=== PATIENT | female | born 1955 | race Caucasian/White ===

== ENCOUNTER → 2018-03-12 | Outpatient (CLI) | payer OTHER, BC ==
[~2018-03-12] MED LIST: ADDERALL10 MG PO; ALPRAZOLAM0.5 MG PO; CELEBREX200 MG PO; COLACE100 MG PO; COMPAZINE10 MG PO; CONCERTA27 MG PO; CYCLOBENZAPRINE5 MG PO; DIMENHYDRINATE50 MG PO; FEMARA2.5 MG PO; GABAPENTIN300 MG PO; INDERAL20 MG PO; IRON18 MG PO; IRON325 M1 PO; KLOR-CON20 MEQ PO; LIDOCAINE700 MG TP; LISINOPRIL10 MG PO; LISINOPRIL20 MG PO; MARINOL10 MG PO; MAXALT10 MG PO; MEGACE 40 MG40 MG/ML PO; MIRALAX17 GM PO; MORPHINE SULFAT30 M2 PO; MORPHINE SULFAT90 MG PO; MOVANTIK12.5 MG PO; MS CONTIN,ORAMO15 M1 PO; MS CONTIN,ORAMO30 MG PO; MS CONTIN,ORAMO60 MG PO; NARCAN4 MG NS; NEURONTIN300 MG PO; OXYCODONE HCL10 MG PO; OXYCODONE HCL30 MG PO; PANTOPRAZOLE SO40 MG PO; PRISTIQ50 MG PO; ROXICODONE30 MG PO; SENNA8.6 MG PO; VITAMIN D2000 UNIT PO; VITAMIN D31000 UNIT PO; WELLBUTRIN XL150 MG PO; XANAX0.5 MG PO; ZOFRAN8 MG PO
[2018-03-12 09:18] LABS: HEMATOCRIT 27.8 % (36.0-46.0); HEMOGLOBIN 8.7 G/DL (11.9-15.5); MCH 30.7 PG (29.0-34.0); MCHC 31.3 G/DL (30.0-36.0); MCV 98.2 FL (83-99); PLATELET COUNT 222 K/uL (156-360); RBC DIS.WIDTH-SD 68.5 % (39-53); RED BLOOD COUNT 2.83 M/uL (3.80-5.20); WHITE BLOOD COUNT 5.6 K/uL (4.1-10.2)
== END | disposition home or self-care (01) ==
LOC: OPR 08:00 → EDSTATUS 08:00 → OPR 08:11
PROVIDERS: Anesthesiology
PROC: 0FB23ZX Excision of Left Lobe Liver, Percutaneous Approach, Diagnostic (ICD-10-PCS; principal; 2018-03-12)
DX: R16.0 Hepatomegaly, not elsewhere classified (principal); C50.919 Malignant neoplasm of unspecified site of unspecified female breast; C79.51 Secondary malignant neoplasm of bone; Z17.0 Estrogen receptor positive status [ER+]
CPT/HCPCS: 77012; 85027; 85610; 85730; 88305; 88341 TC; 88342 TC; J3010